=== PATIENT | female | born 1940 | race Caucasian/White ===

== ENCOUNTER 2022-09-19 17:52 | Observation (INO) | payer MEDICARE, OTHER, SELFPAY ==
[2022-09-19 17:52] VITALS: BP 159/90; PULSE 70; RESP 19; TEMP 36.8; O2SAT 95; BMI 29.7
--- NOTE | 2022-09-19 18:10 | EKG12_ITS ---
Test Reason : DIZZY Blood Pressure : / mmHG Vent. Rate : 061 BPM Atrial Rate : 061 BPM P-R Int : 188 ms QRS Dur : 092 ms QT Int : 422 ms P-R-T Axes : 023 -06 -01 degrees QTc Int : 424 ms Normal sinus rhythm Septal infarct , age undetermined Abnormal ECG Confirmed by EMY BAEZA, MEHRAN ([id number]), acquisition editor MEGAN PHILLIPS ([id number]) on 09/21/2022 8:55:21 AM Referred By: Confirmed By:MEHRAN QUEVEDO MD
--- NOTE | 2022-09-19 18:12 | CT_ITS ---
STUDY: CTA HEAD AND NECK WITH CONTRAST REASON FOR EXAM: Female, 82 years old. Dizziness and headache. RADIATION DOSAGE (If Supplied By Facility): CTDIvol = ( 32.14 ) mGy, DLP = ( 1532.86 ) mGycm TECHNIQUE: CT angiography was performed with a multi-detector CT scanner. Data acquisition was obtained from the skull base through the vertex following intravenous administration of IV 100mL Isovue-370. MIP images were reconstructed from the axial data set. Post-processing of the angiographic images was performed, with multiplanar reformation and 3D reconstruction. Individualized dose optimization techniques were used for this CT. COMPARISON: No relevant priors. FINDINGS: Normal bilateral petrous carotid arteries. There is calcified plaque formation of the right cavernous carotid artery, without a cross-sectional luminal stenosis. There is calcified plaque formation of the left cavernous carotid artery, without a cross-sectional luminal stenosis. Normal right A1 segments of the anterior cerebral artery. Normal left A1 segments of the anterior cerebral artery. Normal bilateral A2 segments of the anterior cerebral arteries. Normal right M1 and M2 segments of the middle cerebral arteries, with a normal M1 bifurcation. Normal left M1 and M2 segments of the middle cerebral arteries, with a normal M1 bifurcation. Normal right posterior communicating artery (PCOM). Normal left posterior communicating artery (PCOM). Normal bilateral vertebral arteries. Normal basilar artery with a normal basilar bifurcation. The visualized bilateral superior cerebellar (SCA) arteries are normal. Atretic P1 segments of the bilateral posterior cerebral arteries. The patent P2 and visualized P3 segments are supplied via the posterior communicating arteries. There is no demonstrated aneurysm of the moapa of Wolf. Chronic involutional changes without acute hemorrhage or infarct. AORTIC ARCH: Atherosclerotic changes of the aortic arch without aneurysm or dissection. Normal origins of the brachiocephalic, left common carotid, and left subclavian arteries. RIGHT CAROTID ARTERIES: Normal right common carotid artery (CCA). Atherosclerotic changes at the carotid bifurcation extending into the carotid bulb. Approximate 60% stenosis. Normal origin of the right internal carotid (ICA) artery without a hemodynamically significant stenosis. Normal visualized cervical portion of the right internal carotid artery. Normal origin of the right external carotid artery (ECA). LEFT CAROTID ARTERIES: Normal left common carotid artery (CCA). Atherosclerotic changes at the carotid bifurcation carotid bulb without significant stenosis. Normal origin of the left internal carotid (ICA) artery without a hemodynamically significant stenosis. Normal visualized cervical portion of the left internal carotid artery. Normal origin of the left external carotid artery (ECA). VERTEBRAL ARTERIES: Normal bilateral vertebral arteries. CT/CTA Head AND Neck W/ Contrast IMPRESSION: 1. Atherosclerotic changes at the right carotid bifurcation with approximate 60% stenosis. 2. Hemodynamically insignificant left carotid calcification. 3. Mild atherosclerotic changes of the carotid siphons without significant stenosis. 4. Atretic P1 segments of the bilateral posterior cerebral arteries. The distal arteries are supplied via the patent bilateral posterior communicating arteries. Otherwise normal intracranial vasculature. Electronically Signed: Ariel Chambers DO at 19:57 EST ,
--- NOTE | 2022-09-19 18:13 | EX.ED.DYSGE1 ---
HPI History of Present Illness Chief Complaint: Dizziness Detail of Chief Complaint: Dizziness Informant: patient Narrative Narrative: Patient presents the emergency department complaint of dizziness that started suddenly about half an hour ago. Patient states that she was doing a crossword puzzle when she had sudden onset of dizziness. Patient then had pain in the center of her head between her eyes. The headache seems to be getting better. She describes nausea but no vomiting. Patient does have history of vertigo in the past but that felt different. She denies difficulty with speech or vision. She denies weakness in the extremities. Patient not on blood thinners. She denies falls or head injuries. Denies significant illness recently. Patient has describes some myalgias and arthralgias over the last couple weeks [facility] Medical History (Updated 09/19/22 @ 20:[address] Hollie Horan MD) BPPV (benign paroxysmal positional vertigo) Former tobacco use HLD (hyperlipidemia) HTN (hypertension) Migraine Home Medications amlodipine 10 mg tablet 10 mg PO DAILY BLOOD PRESSURE 09/19/22 [History Last Taken 09/19/22] atorvastatin 10 mg tablet 10 mg PO DAILY CHOLESTEROL 09/19/22 [History Last Taken 09/19/22] pantoprazole 20 mg tablet,delayed release 20 mg PO DAILY ACID REFLUX 09/19/22 [History Last Taken Unknown] Allergy/AdvReac Type Severity Reaction Status Date / Time Penicillins [PCN] Allergy Rash Verified 09/19/22 17:55 pain meds Allergy Rash Uncoded 09/19/22 17:55 Surgical History (Updated 09/19/22 @ 20:[address] Hollie Horan MD) S/P bilateral hip replacements Social History Smoking Status: Former smoker ROS ROS ED Review of Systems ROS Unobtainable: other Constitutional Constitutional ED: Reports lethargy; Denies chills, fever(s), sweats or weight loss Eyes Eyes: Denies blurry vision, change in vision or diplopia ENT ENT ED: Denies rhinorrhea or sore throat Cardiovascular Cardiovascular: Denies chest pain, orthopnea or racing heartbeat Respiratory/Chest Respiratory/Chest: Denies cough, dyspnea, dyspnea on exertion, orthopnea or sputum Gastrointestinal Gastrointestinal: Denies abdominal pain, diarrhea, nausea or vomiting Genitourinary Genitourinary ED: Denies dysuria, hematuria or urinary frequency Musculoskeletal Musculoskeletal: Denies arthralgias, back pain, myalgias or neck pain Integumentary Denies abscess, Abrasions or rash Neurologic Neurologic: Reports headache(s) and other Details: Dizziness ; Denies weakness Psychiatric Psychiatric: Denies anxiety, depression or suicidal thoughts Endocrine Endocrinology: Denies polydipsia, polyphagia or polyuria Hematologic/Lymphatic Hematologic/Lymphatic: Denies easy bleeding, easy bruising or lymphadenopathy Allergic/Immunologic Allergic/Immunologic ED: Denies mouth swelling, tongue swelling or urticaria EXAM Physical Exam Const Vital Signs: 09/19/22 17:52 09/19/22 17:57 09/19/22 19:58 Temperature 98.3 F Temperature Source Oral Pulse Rate 70 64 Respiratory Rate 19 H 20 H Respiratory Effort Normal Non-Labored Respiratory Pattern Normal Blood Pressure 159/90 H 158/83 H Blood Pressure Mean 113 108 Pulse Ox 95 93 Oxygen Delivery Method Room Air Nasal Cannula Oxygen Flow Rate (L/min) 2 Positive well nourished and well developed General Appearance ED: well developed and NAD HEENT Reports TM's clear and moist mucous membranes normocephalic and atraumatic; Negative for trauma or tenderness Tympanic Membrane ED: Yes TM's clear Eyes PERRL and EOMs intact bilaterally General Eye ED: Negative for pale conjunctiva or scleral icterus Neck no lymphadenopathy, supple and no JVD General: Negative for tenderness Chest Wall inspection of chest normal and palpation of chest normal Chest: Negative for tenderness Resp normal respiratory effort and clear to auscultation bilaterally Effort and Inspection: Negative for respiratory distress or pain with movement Auscultation: Negative for rhonchi, wheezes or diminished lung sounds Cardio regular rate, regular rhythm, S1 normal heart sound, S2 normal heart sound and no murmurs Peripheral Pulses: pulses 2+ throughout GI normal to inspection, nondistended, normoactive bowel sounds, soft to palpation, non-tender, non-distended and no masses Back/Spine no CVA tenderness and no thoracic nor lumbar tenderness Extremity normal to inspection General Extremety ED: Negative for edema General Extremity: Negative for edema Neuro oriented x3, CN's II-XII intact bilaterally, no sensory deficits noted and gait normal Neuro Narrative: Finger-nose and heel cortes testing within normal limits, negative Romberg, negative pronator drift, fundi benign. Hallpike maneuver performed and there was no evidence of nystagmus. Sensorium / Orientation: awake, alert, oriented to person, oriented to place and oriented to time Motor Exam: strength 5/5 throughout and strength abnormal Psych mental status grossly normal Skin no rashes or lesions noted and no wounds MDM MDM MDM Narrative Medical decision making narrative: Patient presents to the emergency department with dizziness sudden onset. She does have history of vertigo. She describes dizziness being worse with head position. Clinically I cannot appreciate any nystagmus but she is symptomatic with sitting up and certain head movements. IV line established on arrival. Patient was medicated with Zofran and Ativan as well as meclizine. She continues to complain of dizziness after treatment. CTA of the head and neck were essentially unremarkable. CBC with differential and chemistries were unremarkable. EKG showed a sinus rhythm with a rate of 61 bpm with old septal infarct. At this time Case will be discussed with hospitalist to evaluate patient for admission. In the differential would be benign positional vertigo versus central vertigo and possible stroke. History & Record Review Discussion w/independent historian: Patient Lab Data Labs: Laboratory Results - last 24 hr 09/19/22 09/19/22 18:00 18:00 WBC 10.7 RBC 5.29 Hgb 14.1 Hct 45.4 MCV 85.8 MCH 26.7 L MCHC 31.1 L RDW Std Deviation 46.0 H RDW Coeff of Robinson 14.6 Plt Count 279 MPV 11.1 Immature Gran % (Auto) 0.400 Neut % (Auto) 58.2 Lymph % (Auto) 28.7 Bradford % (Auto) 9.6 Eos % (Auto) 2.2 Baso % (Auto) 0.9 Absolute Neuts (auto) 6.2 Absolute Lymphs (auto) 3.07 Nucleated RBC % 0 Sodium 142 Potassium 3.9 Chloride 110 H Carbon Dioxide 25.0 Anion Gap 7 BUN 14 Creatinine 0.90 Estim Creat Clear Calc 33.42 Est GFR (MDRD) Af Amer 77 Est GFR (MDRD) Non-Af 64 BUN/Creatinine Ratio 15.6 Glucose 101 Calcium 10.9 H Troponin I High Sens 8 Radiography Diagnostic Testing: Clinical Impression(s) from Imaging Studies Head/Neck CTA 09/19/22 18:12 IMPRESSION: 1. Atherosclerotic changes at the right carotid bifurcation with approximate 60% stenosis. 2. Hemodynamically insignificant left carotid calcification. 3. Mild atherosclerotic changes of the carotid siphons without significant stenosis. 4. Atretic P1 segments of the bilateral posterior cerebral arteries. The distal arteries are supplied via the patent bilateral posterior communicating arteries. Otherwise normal intracranial vasculature. Electronically Signed: Ariel Chambers DO at 19:57 EST Reading Location ID and State: [address] [place] [address] Tel [phone], Service support , EKG Initial EKG: Attestation: I personally reviewed and interpreted this EKG as follows: Comments: Sinus rhythm with a rate of 61 bpm with old septal infarct Management Discussion w/another healthcare provider: Hospitalist Discharge Plan Dx/Rx/DC Orders Clinical Impression: Dizziness, Hypertension, Difficulty in walking Disposition Disposition: Acute Care Hospital [facility]
--- NOTE | 2022-09-19 18:18 | NURSING ---
NO OLD EKGS
[2022-09-19] MEDS: 0.9% Normal Saline 1,000 ML 150 ML IV (18:26)
[2022-09-19] MEDS: Ondansetron 4 MG/2 ML Vial IV (18:26)
[2022-09-19] MEDS: LORazepam 2 MG/ML Syringe 1 MG IV (18:27)
[2022-09-19] MEDS: Meclizine HCl 25 MG Tablet PO (18:27)
[2022-09-19 18:50] LABS: Absolute Lymphocyte Count 3.07 X10^3/uL (0.83-4.51); Absolute Neutrophil Count 6.2 X10^3/uL (2.0-7.7); Basophil% 0.9 % (0-1); Eosinophil# 0.24 X10^3/uL; Eosinophils% 2.2 % (0-5); Hematocrit 45.4 % (37-47); Hemoglobin 14.1 g/dL (12.0-15.0); Lymphocyte # 3.07 X10^3/ul (0.83-4.51); Lymphocyte % 28.7 % (19-41); Mean Corp Hgb Conc 31.1 g/dL (32-36); Mean Corpuscular Hgb 26.7 pg (27.0-32.0); Mean Corpuscular Volume 85.8 fL (81-99); Mean Platelet Vol. 11.1 fl (6.2-12.0); Monocyte# 1.03 X10^3/uL; Monocyte% 9.6 % (0-10); NRBC Flagged by Analyzer 0 % (0-5); Neutrophil # 6.22 X10^3/uL (2.7-7.7); Neutrophil % 58.2 % (47-70); Platelet Count 279 K/mm3 (150-450); RBC Distribution Width CV 14.6 % (11.6-14.6); Red Blood Count 5.29 M/mm3 (4.2-5.4); White Blood Count 10.7 K/mm3 (4.4-11.0)
[2022-09-19 19:06] LABS: Anion Gap 7 (5-15); BUN 14 mg/dL (7-18); BUN/Creat Ratio 15.6 RATIO (10-20); Calcium,Total 10.9 mg/dL (8.5-10.1); Chloride 110 mmol/L (98-107); EST Glomerular Filtration Rate 64 mL/min (>60); Est Glom Filt Rate - Afr Amer 77 mL/min (>60); Estimated Creatinine Clearance 33.42 ml/min; Glucose 101 mg/dL (74-106); Potassium 3.9 mmol/L (3.5-5.1); Sodium Level 142 mmol/L (136-145); Troponin-I HS 8 pg/mL (3.0-54.0)
[2022-09-19 19:58] VITALS: BP 158/83; PULSE 64; RESP 20; O2SAT 93
--- NOTE | 2022-09-19 20:35 | PCM.HP.STD ---
HPI - General General Date of Admission: 09/19/22 Date of Service: 09/19/22 Chief Complaint: Dizziness HPI Narrative The patient is an 82 y/o F w/ PMHx: Chronic migraines with aura associated, Hx BPPV, HTN, HLD, Former tobacco use who presents to the [facility] ED on 09/19/22 with history of onset of dizziness starting approximately half an hour prior to ED presentation while she was specifically doing crossword puzzles with also discomfort between her eyes with throbbing headache sensation with associated nausea with no emesis with history of prior vertigo however this felt different than previous with no focal deficits or any difficulty with her vision or speech prompting eventual ED evaluation. Patient is otherwise been in decent health although she does report mild myalgias and arthralgias over the last couple weeks. Patient notes that when she sits up from seated or turns her head to either direction her symptoms are worsened. Family present does state that with onset she felt as though she could not move but is unclear if this was because she felt so poorly but with assistance with EMS she did not have any issue with specifically movement. Patient does have a history of migraines which do occur at the similar region she had her headache and she does tend to have aura but not specifically light or sound sensitivity per discussion with family. Patient has never had a complex migraine. In the ED they did attempted a Chelsey-Hallpike maneuver and there was no evidence of any nystagmus. In the ED work-up included T98.3, heart rate 70, BP 159/90 initially, respiratory rate 19, 95% on room air eventually requiring oxygen following interventions with noted 93% on 2 L nasal cannula, CBC with WC 10.7, hemoglobin 14.1, platelet 279 without marked shift, BMP with chloride 110, calcium 10.9, troponin 8,. In the ED patient administered normal normal saline 1 L, Zofran 4 mg IV x1, meclizine 25 mg p.o. x1 as well as Ativan 1 mg IV x1, CT head and neck with contrast with atherosclerotic changes of the right carotid bifurcation with approximate 60% stenosis, hemodynamically insignificant left carotid calcification, mild atherosclerotic changes of the carotid siphons without significant stenosis, atretic P1 segment of the bilateral posterior cerebral arteries, distal artery supplied by the patent bilateral posterior communicating arteries otherwise normal intracranial vasculature, EKG with SR with no acute evidence of acute ischemia. Given preference for admission to further work-up possible posterior CVA discussed with ED physician requested aspirin therapy be administered. In the ED upon evaluation patient she was extremely fatigued and lethargic because of likely her medications which are sedated in nature. [facility] Medical History (Updated 09/19/22 @ 22:22 by Sugey Barney) BPPV (benign paroxysmal positional vertigo) Former tobacco use Hiatal hernia HLD (hyperlipidemia) HTN (hypertension) Migraine Home Medications amlodipine 10 mg tablet 10 mg PO DAILY BLOOD PRESSURE 09/19/22 [History Last Taken 09/19/22] atorvastatin 10 mg tablet 10 mg PO DAILY CHOLESTEROL 09/19/22 [History Last Taken 09/19/22] pantoprazole 20 mg tablet,delayed release 20 mg PO DAILY ACID REFLUX 09/19/22 [History Last Taken Unknown] Allergy/AdvReac Type Severity Reaction Status Date / Time Penicillins [PCN] Allergy Rash Verified 09/19/22 17:55 pain meds Allergy Rash Uncoded 09/19/22 17:55 Family History (Updated 09/19/22 @ 22:[address] Hollie Horan MD) Mother CAD (coronary artery disease) Heart disease Hypertension Family History other other (No marked paternal family history noted including HD, DM, CA.) Surgical History (Updated 09/19/22 @ 22:[address] Hollie Horan MD) History of eye surgery History of repair of hiatal hernia S/P bilateral hip replacements Social History (Updated 09/19/22 @ 22:[address] Hollie Horan MD) household members: significant other Smoking Status: Former smoker how long ago did patient quit smoking: Quit 1960s, started in her 20s, ~ 1/2 ppd until quit. alcohol intake: never substance use type: does not use ROS ROS Narrative Admission Review of Systems: CONSTITUTIONAL: No weight loss, fever, chills, + weakness or fatigue. HEENT: + Dizziness, headache. Eyes: No visual loss, blurred vision, double vision or yellow sclerae. Ears, Nose, Throat: No hearing loss, sneezing, congestion, runny nose or sore throat. SKIN: No rash or itching, lesions, wounds. CARDIOVASCULAR: No chest pain, chest pressure or chest discomfort, palpitations, edema, orthopnea, syncopal events. RESPIRATORY: No shortness of breath, cough or sputum, wheezing, hemoptysis. GASTROINTESTINAL: + anorexia, nausea without vomiting. No diarrhea, abdominal pain, melena, BRBPR. GENITOURINARY: No dysuria, frequency, urgency or retention. NEUROLOGICAL: + Dizziness, headache. No syncope, paralysis, ataxia, numbness or tingling in the extremities, focal weakness, change in bowel or bladder control, seizure. MUSCULOSKELETAL: + muscle, back pain, joint pain or stiffness. HEMATOLOGIC: No anemia, bleeding or bruising. LYMPHATICS: No enlarged nodes. No history of splenectomy. PSYCHIATRIC: No history of depression or anxiety. ENDOCRINOLOGIC: No reports of sweating, cold or heat intolerance. No polyuria or polydipsia. ALLERGIES: No history of asthma, hives, eczema or rhinitis. Review of Systems ROS Unobtainable: other Details: Unable to current obtain ROS from patient, only family secondary to lethargy/sedation from recent ativan/meclizine. Vital Signs Vital Signs Vital Signs: 09/19/22 17:52 09/19/22 17:57 09/19/22 19:58 Temperature 98.3 F Temperature Source Oral Pulse Rate 70 64 Respiratory Rate 19 H 20 H Respiratory Effort Normal Non-Labored Respiratory Pattern Normal Blood Pressure 159/90 H 158/83 H Blood Pressure Mean 113 108 Pulse Ox 95 93 Oxygen Delivery Method Room Air Nasal Cannula Oxygen Flow Rate (L/min) 2 Weight Weight: 152 lb Body Mass Index (BMI) 29.7 Physical Exam Narrative Physical Examination: General: Patient extremely lethargic following recent Ativan and meclizine combination, will awaken but falls back asleep, unable to answer orientation questions or follow exam request, laying in the ED bed, no acute distress. Skin: Normal color, normal turgor, no icterus, no cyanosis. HEENT: AT/NC, EOM unable to be assessed well given lethargy, PERRLA, mildly dry MM, no carotid bruits although some referred sounds from snoring make exam difficult, no marked JVD noted. Lungs: Mildly diminished, greater bases, softly snoring, no rales, ronchi or wheezing. Heart: Currently regular rate and rhythm; no gallop, rub audible. Abdomen: Soft, obese, NTTP, ND, mildly hyperactive BS, no HSM. Extremities: No cyanosis, clubbing, or edema. Neurological: Patient extremely lethargic following recent Ativan and meclizine combination, will awaken but falls back asleep, unable to answer orientation questions or follow exam request, laying in the ED bed, no acute distress, cognitive function not currently baseline but likely secondary to sedated medication, cranial nerves difficult to assess given lethargy, moving extremities but again more so with irritability during exam, unable to perform finger-nose/[id number], equivocal Babinski noted, no evidence of any nystagmus. Psychiatric: Affect appears flat, lethargic, no acute evidence of depressive or anxiety feelings. Results Lab / Micro Data Result Diagrams: 09/19/22 18:00 09/19/22 18:00 Labs: Laboratory Results - last 24 hr 09/19/22 18:00: WBC 10.7, RBC 5.29, Hgb 14.1, Hct 45.4, MCV 85.8, MCH 26.7 L, MCHC 31.1 L, RDW Std Deviation 46.0 H, RDW Coeff of Robinson 14.6, Plt Count 279, MPV 11.1, Immature Gran % (Auto) 0.400, Neut % (Auto) 58.2, Lymph % (Auto) 28.7, [place] % (Auto) 9.6, Eos % (Auto) 2.2, Baso % (Auto) 0.9, Absolute Neuts (auto) 6.2, Absolute Lymphs (auto) 3.07, Nucleated RBC % 0 09/19/22 18:00: Sodium 142, Potassium 3.9, Chloride 110 H, Carbon Dioxide 25.0, Anion Gap 7, BUN 14, Creatinine 0.90, Estim Creat Clear Calc 33.42, Est GFR (MDRD) Af Amer 77, Est GFR (MDRD) Non-Af 64, BUN/Creatinine Ratio 15.6, Glucose 101, Calcium 10.9 H, Troponin I High Sens 8 Radiology Impression Head/Neck CTA 09/19/22 18:12 IMPRESSION: 1. Atherosclerotic changes at the right carotid bifurcation with approximate 60% stenosis. 2. Hemodynamically insignificant left carotid calcification. 3. Mild atherosclerotic changes of the carotid siphons without significant stenosis. 4. Atretic P1 segments of the bilateral posterior cerebral arteries. The distal arteries are supplied via the patent bilateral posterior communicating arteries. Otherwise normal intracranial vasculature. Electronically Signed: Ariel Chambers DO at 19:57 EST Reading Location ID and State: [address] [place] [address] Tel [phone], Service support , Assessment & Plan Assessment/Plan (1) Dizziness: PLAN: Plan The patient is an 82 y/o F w/ PMHx: Chronic migraines with aura associated, Hx BPPV, HTN, HLD, Former tobacco use who presents to the [facility] ED on 09/19/22 with history of onset of dizziness starting approximately half an hour prior to ED presentation while she was specifically doing crossword puzzles with also discomfort between her eyes with throbbing headache sensation with associated nausea with no emesis with history of prior vertigo however this felt different than previous with no focal deficits or any difficulty with her vision or speech prompting eventual ED evaluation. #1. Dizziness concerning for possible benign positional vertigo however cannot rule out posterior CVA and certainly could also be possible complex migraine given history: Will admit to PCU, will obtain MRI Brain, given findings as noted #2 we will request carotid ultrasound with plan for vascular surgery evaluation potentially inpatient if acute CVA is present and if negative potentially outpatient, will request ECHO, PT/OT/Speech/Nutrition evaluation per protocol. Will allow permissive HTN, maintain on asa, statin w/ AM FLP, fall precautions, hemoglobin A1c, magnesium, TSH requested, will continue treatment but will trial Valium to see if this has better effect if recurrent symptoms however will have as needed only given patient is very lethargic from her recent ED combination of Ativan, meclizine. #2. Incidentally noted right carotid bifurcation stenosis: CTA head and neck with eschar changes at the right carotid bifurcation with approximate 60% stenosis, will also request carotid ultrasound as often vascular surgery prefers this method, would plan to have follow-up outpatient with vascular surgery, maintain on aspirin, continue patient statin therapy. #3. Mild hypercalcemia, unclear etiology but recent complaints Arthralgia/Myalgia certainly could be related: Admission calcium 10.9, will obtain ionized calcium, judiciously hydrating, repeat CMP in AM, will also check CPK, mag/phos, COVID/respiratory panel. #4. Hypertension: We will maintain permissive hypertension given acute presentation with parent agents per stroke protocol. #5. Hyperlipidemia: We will continue patient home statin therapy. FLP in a.m. #6. Former tobacco use: Encourage continued tobacco cessation. #7. DVT prophylaxis: Lovenox. #8. CODE status: Patient JAYSON is her son who is present and living will in place. Discussed CODE status at length including difference between FULL code, DNR-CCA and DNR-CC status. Following discussions about the differences in these status, requested Full Code status. Advanced Care Planning Face to Face Time: 16 minutes. Admission Evaluation Time spent evaluating chart, patient history, patient evaluation, care planning and discussion with specialists: 75 minutes. Charges/Coding Visit Charges Inpatient E&M: 26566 Init Hosp L3 Procedures Hospitalists Procedures: 44535 Advncd Care Plan 30 Min
[2022-09-19 21:20] VITALS: BP 91/57; PULSE 60; RESP 18; TEMP 36.3; O2SAT 96
[2022-09-19 21:30] LABS: Erythrocyte Sedimentation Rate 18 mm/hr (0-30)
[2022-09-19 21:33] LABS: CRP < 2.90 mg/L (0.0-3.0); Magnesium 2.3 mg/dL (1.6-2.6)
--- NOTE | 2022-09-19 21:47 | ECHOD_ITS ---
Reason For Study: TIA/CVA Procedure This was a 2D Doppler, Color Flow transthoracic echocardiogram. The exam was of adequate technical quality. Exam performed portable in patient room. Left Ventricle Normal LV size. Left ventricular systolic function is normal. The estimated ejection fraction is 65 %. Stage 2 diastolic dysfunction. No regional wall motion abnormalities noted. Right Ventricle Normal RV size. Normal systolic function. Atria The left atrium is moderately enlarged. Normal right atrium. No doppler evidence for ASD. Bubble contrast study negative for right to left interatrial shunt. Mitral Valve There is mild mitral annular calcification. Extension of the mitral annular calcification onto the base of the posterior mitral valve leaflet. Mild (1+) mitral valve insufficiency. Tricuspid Valve Normal tricuspid valve. Mild tricuspid valve insufficiency. Right ventricular systolic pressure estimated to be 36 mmHg. Aortic Valve Trisinus/trileaflet aortic valve. Moderate focal aortic valve calcification. Pulmonic Valve The pulmonic valve is not well visualized. Trivial pulmonic valve insufficiency. Great Vessels Normal sized aortic root. Calcified aortic root. Pericardium/Pleural No pericardial effusion. Medication Performed a rapid injection of agitated mix of 9 cc saline and 1cc air to assess for atrial septal defect. MMode/2D Measurements & Calculations LVIDd: 4.8 cm IVSd: 0.89 cm LVOT diam: 2.2 cm LVIDs: 3.0 cm LVPWd: 1.2 cm FS: 36.3 % LVOT area: 3.8 cm2 Ao root diam: 2.8 cm LAV(MOD-sp4): 106.9 ml LVAd ap4: 23.8 cm2 LVLd ap4: 6.4 cm EDV(MOD-sp4): 70.7 ml EDV(sp4-el): 75.1 ml LVAs ap4: 11.2 cm2 LVLs ap4: 5.1 cm ESV(MOD-sp4): 20.7 ml ESV(sp4-el): 20.9 ml EF(MOD-sp4): 70.8 % EF(sp4-el): 72.1 % SV(MOD-sp4): 50.0 ml SV(sp4-el): 54.2 ml LA A4 area: 31.6 cm2 LA dimension(2D): 4.8 cm RA A4 area: 8.4 cm2 Time Measurements MV dec time: 0.25 sec Doppler Measurements & Calculations MV E max nando: 92.2 cm/sec Lat Peak E' Nando: 7.5 cm/sec Med Peak E' Nando: 6.0 cm/sec MV A max nando: 108.1 cm/sec E/E' lat: 12.3 E/E' med: 15.3 MV E/A: 0.85 MV V2 max: 118.2 cm/sec MV dec slope: 367.8 cm/sec2 Ao V2 max: 185.5 cm/sec MV max P.6 mmHg Ao max P.8 mmHg MV V2 mean: 56.3 cm/sec Ao V2 mean: 123.3 cm/sec MV mean P.6 mmHg Ao mean P.1 mmHg MV V2 VTI: 40.1 cm Ao V2 VTI: 47.2 cm MVA(VTI): 2.7 cm2 AV (velocity ratio): 0.61 ERIBERTO(I,D): 2.3 cm2 ERIBERTO(V,D): 2.2 cm2 LV V1 max: 107.8 cm/sec MR max nando: 526.4 cm/sec SV(LVOT): 109.1 ml LV V1 max P.6 mmHg MR max P.9 mmHg LV V1 mean P.6 mmHg MR mean nando: 439.8 cm/sec LV V1 mean: 75.2 cm/sec MR mean P.3 mmHg LV V1 VTI: 28.7 cm MR VTI: 185.3 cm PA V2 max: 101.9 cm/sec TR max nando: 288.8 cm/sec PA V2 mean: 69.7 cm/sec TR max P.4 mmHg ECHO/Echo Complete Interpretation Summary Left ventricular systolic function is normal. The estimated ejection fraction is 65 %. The left atrium is moderately enlarged. There is mild mitral annular calcification. Extension of the mitral annular calcification onto the base of the posterior mi tral valve leaflet Mild (1+) mitral valve insufficiency. Mild tricuspid valve insufficiency. Moderate focal aortic valve calcification. Trivial pulmonic valve insufficiency. Calcified aortic root. Right ventricular systolic pressure estimated to be 36 mmHg. Stage 2 diastolic dysfunction. Bubble contrast study negative for right to left interatrial shunt. Ordering Physician: Hollie Horan Referring Physician: SYED SALDAÑA Performed By: Joyce Carrion RCS
--- NOTE | 2022-09-19 21:47 | CDU_ITS ---
Reason For Study: CVA Rt. Velocities/BP Lt. Velocities/BP Prox CCA 96.1/22.5 cm/sec. Prox CCA 64.1/20.1 cm/sec. Mid CCA 80.2/20 cm/sec. Mid CCA 52/13.5 cm/sec. Dist CCA 70.4/22.5 cm/sec. Dist CCA 57.5/20.1 cm/sec. Prox ICA 102.5/32.2 cm/sec. Prox ICA 47.6/12.4 cm/sec. Mid ICA 88.8/22.5 cm/sec. Mid ICA 56.4/14.6 cm/sec. Dist ICA 74/21.2 cm/sec. Dist ICA 63/22.3 cm/sec. Rt. ICA/CCA = 1.28. Lt. ICA/CCA = 1.10. Prox ECA 77.7/13.9 cm/sec. Prox ECA 56.4/6.9 cm/sec. Rt. Vert. 36.2/10.7 cm/sec. Lt. Vert. 34.3/8.1 cm/sec. Right Extracranial There is homogeneous, smooth atherosclerotic plaque noted in the right common carotid artery. There is heterogeneous, irregular atherosclerotic plaque noted in the right internal carotid artery. There is heterogeneous, irregular atherosclerotic plaque noted in the right external carotid artery. Antegrade flow is noted in the right vertebral artery. Left Extracranial There is homogeneous, smooth atherosclerotic plaque noted in the left common carotid artery. There is heterogeneous, irregular atherosclerotic plaque noted in the left internal carotid artery. There is intimal thickening but no significant atherosclerotic plaque noted in the left external carotid artery. Antegrade flow is noted in the left vertebral artery. Procedure Carotid Duplex 18642. This is a Carotid Duplex examination using B-mode, color flow and specral Doppler. Exam performed portable in patient room. VL/Carotid Duplex Ultrasound Interpretation Summary Irregular calcific plaque at the proximal right internal carotid artery with le ss than 50% stenosis Less than 50% stenosis right external carotid artery Mild irregular plaque at the proximal left internal carotid artery with less th an 50% stenosis Less than 50% stenosis left external carotid artery Patent and antegrade vertebral arteries bilaterally Ordering Physician: Hollie Horan Referring Physician: Sujatha Rees Performed By: Lian Han RVT
[2022-09-19 21:51] VITALS: BP 124/74; PULSE 60; RESP 18; TEMP 36.4; O2SAT 97
[2022-09-19 22:07] VITALS: BMI 30.9
[2022-09-19 22:20] VITALS: O2SAT 97
[2022-09-19 22:21] LABS: Procalcitonin < 0.01 ng/mL (0.00-0.09)
[2022-09-19] MEDS: 0.9% Normal Saline 1,000 ML 100 ML IV (22:48)
[2022-09-19] MEDS: Aspirin 325 MG Tablet PO (22:48)
[2022-09-19 23:01] LABS: CPK Total, Creatine Kinase 182 U/L (26-192); Phosphorus 3.1 mg/dL (2.5-4.9)
[2022-09-20] MEDS: 0.9% Normal Saline 1,000 ML 999 ML IV (00:02)
[2022-09-20] MEDS: 0.9% Saline Lock 10 ML Syringe IV (00:26)
[2022-09-20 01:29] VITALS: BMI 30.9
[2022-09-20 01:57] VITALS: BP 123/73; PULSE 55; RESP 18; TEMP 36.6; O2SAT 98
[2022-09-20 05:17] VITALS: BP 122/63; PULSE 53; RESP 18; TEMP 36.2; O2SAT 95
[2022-09-20 05:47] LABS: Absolute Lymphocyte Count 2.76 X10^3/uL (0.83-4.51); Absolute Neutrophil Count 4.4 X10^3/uL (2.0-7.7); Basophil# 0.09 X10^3/uL; Basophil% 1.1 % (0-1); Eosinophil# 0.27 X10^3/uL; Eosinophils% 3.2 % (0-5); Hematocrit 38.8 % (37-47); Hemoglobin 11.9 g/dL (12.0-15.0); Lymphocyte # 2.76 X10^3/ul (0.83-4.51); Lymphocyte % 32.9 % (19-41); Mean Corp Hgb Conc 30.7 g/dL (32-36); Mean Corpuscular Hgb 26.8 pg (27.0-32.0); Mean Corpuscular Volume 87.4 fL (81-99); Mean Platelet Vol. 10.9 fl (6.2-12.0); Monocyte# 0.89 X10^3/uL; Monocyte% 10.6 % (0-10); NRBC Flagged by Analyzer 0 % (0-5); Neutrophil # 4.37 X10^3/uL (2.7-7.7); Platelet Count 216 K/mm3 (150-450); RBC Distribution Width CV 14.6 % (11.6-14.6); RBC Distribution Width SD 47.3 fl (35.1-43.9); Red Blood Count 4.44 M/mm3 (4.2-5.4); White Blood Count 8.4 K/mm3 (4.4-11.0)
[2022-09-20 06:00] VITALS: BMI 30.9
[2022-09-20 06:18] LABS: AST(SGOT) 21 U/L (15-37); Alanine Aminotransfer ALT/SGPT 16 U/L (13-56); Albumin, Serum 2.9 g/dL (3.2-5.0); Alkaline Phosphatase 59 U/L (45-117); Anion Gap 5 (5-15); BUN 11 mg/dL (7-18); BUN/Creat Ratio 16.3 RATIO (10-20); Calcium,Total 9.3 mg/dL (8.5-10.1); Chloride 114 mmol/L (98-107); Cholesterol 129 mg/dL (200); Creatinine, Serum 0.68 mg/dL (0.55-1.02); EST Glomerular Filtration Rate 88 mL/min (>60); Est Glom Filt Rate - Afr Amer 107 mL/min (>60); Estimated Creatinine Clearance 30.08 ml/min; Glucose 88 mg/dL (74-106); High Density Lipoprotein 46 mg/dL; Potassium 3.9 mmol/L (3.5-5.1); Protein, Total 5.9 g/dL (6.4-8.2); Sodium Level 145 mmol/L (136-145); Thyroid Stim Hormone (TSH) 2.21 uIU/mL (0.358-3.74); Triglycerides 111 mg/dL; Very Low Density Lipoprotein 22 mg/dL (5-40)
[2022-09-20 08:34] LABS: Hemoglobin A1c 5.2 % (3.8-5.6)
[2022-09-20 09:04] VITALS: BP 129/77; PULSE 53; RESP 17; TEMP 36.8; O2SAT 94
--- NOTE | 2022-09-20 10:00 | MRI_ITS ---
EXAM: MR HEAD WITHOUT INTRAVENOUS CONTRAST CLINICAL INDICATION: CVA TECHNIQUE: Multiplanar and multisequence MR images of the brain were obtained without intravenous contrast. This report was created using [employer] report generation technology. COMPARISON: CTA head and neck with contrast 09/19/2022. FINDINGS: BRAIN AND EXTRA-AXIAL SPACES: T2 FLAIR hyperintensity foci in the white matter of both cerebral hemispheres are chronic white matter ischemic changes. No intra- or extra-axial hemorrhage. Posterior fossa structures are unremarkable. Ventricles are appropriate for age. No hydrocephalus. Basal cisterns are patent. No diffusion restriction to suspect acute or subacute ischemic infarct. No midline shift and no mass effects. SELLA: Unremarkable. Normal sella turcica, pituitary gland, infundibular stalk, optic chiasm and hypothalamus. AUDITORY SYSTEM: Unremarkable. The internal auditory canals are patent. BONES/JOINTS: Unremarkable. No discrete lytic or blastic abnormalities. SINUSES: Unremarkable as visualized. Clear. MASTOID AIR CELLS: Unremarkable as visualized. Clear. ORBITS: Unremarkable as visualized. Both globes, extraocular muscles, optic nerves and retrobulbar fat appear unremarkable. VASCULATURE: Unremarkable as visualized. Normal flow voids in the major intracranial circulation. MRI/Brain without Contrast IMPRESSION: 1. No MRI evidence of acute or subacute ischemic infarct or acute intracranial abnormality. 2. Chronic white matter ischemic changes in both cerebral hemispheres. Electronically Signed: Santos Castañeda MD at 12:31 EST ,
--- NOTE | 2022-09-20 10:06 | PCM.PN.HOSP ---
Reason for Visit Reason for Visit: Diagnoses Dizziness and giddiness (09/19/22) Subjective Subjective Patient is an 82-year-old lady admitted with sudden onset of dizziness which was apparently positional. Admitted to monitored bed currently undergoing evaluation to rule out posterior circulation CVA. Objective Data Objective Data Vital Signs: Vital Signs Temp Pulse Resp BP Pulse Ox O2 Del Method O2 Flow Rate 98.3 F 53 L 17 129/77 H 94 Room Air 2 09/20/22 09:04 09/20/22 09:04 09/20/22 09:04 09/20/22 09:04 09/20/22 09:04 09/20/22 09:04 09/20/22 05:17 Oxygen Flow Rate (L/min) 2 Oxygen Delivery Method Room Air Weight: 71.8 kg Body Mass Index (BMI) 30.9 Intake & Output: Intake and Output for Last 24 Hours 09/18/22 09/19/22 09/20/22 23:59 23:59 23:59 Intake Total 462.5 / 462.5 1243.33 / 1243.33 Balance 462.5 / 462.5 1243.33 / 1243.33 Lab / Micro Data Result Diagrams: 09/20/22 04:43 09/20/22 04:43 Labs: Laboratory Results - last 24 hr 09/19/22 18:00: WBC 10.7, RBC 5.29, Hgb 14.1, Hct 45.4, MCV 85.8, MCH 26.7 L, MCHC 31.1 L, RDW Std Deviation 46.0 H, RDW Coeff of Robinson 14.6, Plt Count 279, MPV 11.1, Immature Gran % (Auto) 0.400, Neut % (Auto) 58.2, Lymph % (Auto) 28.7, [place] % (Auto) 9.6, Eos % (Auto) 2.2, Baso % (Auto) 0.9, Absolute Neuts (auto) 6.2, Absolute Lymphs (auto) 3.07, Nucleated RBC % 0 09/19/22 18:00: Sodium 142, Potassium 3.9, Chloride 110 H, Carbon Dioxide 25.0, Anion Gap 7, BUN 14, Creatinine 0.90, Estim Creat Clear Calc 33.42, Est GFR (MDRD) Af Amer 77, Est GFR (MDRD) Non-Af 64, BUN/Creatinine Ratio 15.6, Glucose 101, Calcium 10.9 H, Troponin I High Sens 8 09/19/22 18:00: ESR 18 09/19/22 18:00: Magnesium 2.3, C-React Prot Ext Range < 2.90 09/19/22 18:00: Phosphorus 3.1, Total Creatine Kinase 182 09/19/22 21:15: Procalcitonin < 0.01 09/19/22 21:15: COVID-19 (MARIN) Not Detected 09/20/22 04:43: WBC 8.4, RBC 4.44, Hgb 11.9 L, Hct 38.8, MCV 87.4, MCH 26.8 L, MCHC 30.7 L, RDW Std Deviation 47.3 H, RDW Coeff of Robinson 14.6, Plt Count 216, MPV 10.9, Immature Gran % (Auto) 0.200, Neut % (Auto) 52.0, Lymph % (Auto) 32.9, [place] % (Auto) 10.6 H, Eos % (Auto) 3.2, Baso % (Auto) 1.1 H, Absolute Neuts (auto) 4.4, Absolute Lymphs (auto) 2.76, Nucleated RBC % 0 09/20/22 04:43: Sodium 145, Potassium 3.9, Chloride 114 H, Carbon Dioxide 26.0, Anion Gap 5, BUN 11, Creatinine 0.68, Estim Creat Clear Calc 30.08, Est GFR (MDRD) Af Amer 107, Est GFR (MDRD) Non-Af 88, BUN/Creatinine Ratio 16.3, Glucose 88, Calcium 9.3, Total Bilirubin 1.20 H, AST 21, ALT 16, Alkaline Phosphatase 59, Total Protein 5.9 L, Albumin 2.9 L, Globulin 3.0, Albumin/Globulin Ratio 1.0, Triglycerides 111, Cholesterol 129, LDL Cholesterol 61, VLDL Cholesterol 22, HDL Cholesterol 46, TSH 2.21 09/20/22 04:43: Hemoglobin A1c 5.2 Micro: Microbiology 09/19/22 23:25 Mucosa - Nasopharyngeal Respiratory Panel (PCR) - Final Radiography Diagnostic Testing: Radiology Impression Head/Neck CTA 09/19/22 18:12 IMPRESSION: 1. Atherosclerotic changes at the right carotid bifurcation with approximate 60% stenosis. 2. Hemodynamically insignificant left carotid calcification. 3. Mild atherosclerotic changes of the carotid siphons without significant stenosis. 4. Atretic P1 segments of the bilateral posterior cerebral arteries. The distal arteries are supplied via the patent bilateral posterior communicating arteries. Otherwise normal intracranial vasculature. Electronically Signed: Ariel Chambers DO at 19:57 EST Reading Location ID and State: [address] [place] [address] Tel [phone], Service support , Physical Exam Narrative GENERAL: cooperative HEENT: Atraumatic; normocephalic EYES; Anicteric, Normal Conjunctiva NECK; supple, normal thyroid, RESPIRATORY: Diminished to auscultation CARDIOVASCULAR: Regular S1 S2, GI: soft, normoactive bowel sounds, : No Renal angle tenderness; EXTREMITIES: No edema, no clubbing, MUSCULOSKELETAL: no muscle wasting NEURO: Awake; no lateralizing signs. SKIN: No Rash PSYCH; Flat affect Assessment & Plan Assessment/Plan (1) Dizziness: PLAN: Plan Patient is an 82-year-old lady admitted with sudden onset of dizziness which was apparently positional in addition to double vision. Admitted to monitored bed currently undergoing evaluation to rule out posterior circulation CVA. Acute onset of vertigo ? Do suspect BPPV given the persistent nature of symptoms. Admitted to a monitored bed medicated with Valium. Plan is for patient to undergo subsequent evaluation with MRI of the head to rule out posterior circulation CVA 2. Right carotid bifurcation stenosis ? Carotid ultrasound ordered for further evaluation 3. Mild hypercalcemia ? Possibly related to dehydration resolved 4. Dyslipidemia -Patient is on statin therapy, continued at home dose 5. GERD ? On PPI 6. Hypertension - Blood pressure controlled, home medications continued with dose adjustment as needed 7. DVT prophylaxis - On enoxaparin Time spent in the patient's overall evaluation,decision-making process, review of diagnostic data, adjustment of management, discussion with other providers, nursing nursing and ancillary staff involved in patient's care documentation, 38 Minutes Charges/Coding Visit Charges Inpatient E&M: 55433 Subs Hosp L2
[2022-09-20] MEDS: 0.9% Normal Saline 1,000 ML 100 ML IV (10:13)
[2022-09-20] MEDS: Pantoprazole Sodium 20 MG Tablet PO (10:14)
[2022-09-20] MEDS: Enoxaparin 40 MG/0.4 ML Syringe SC (10:14)
[2022-09-20] MEDS: Aspirin 81 MG TAB.CHEW PO (10:14)
[2022-09-20 10:18] VITALS: O2SAT 94
[2022-09-20 11:10] VITALS: BMI 30.9
[2022-09-20 11:50] VITALS: O2SAT 94
[2022-09-20 13:00] VITALS: BP 120/78; PULSE 54; RESP 17; TEMP 36.8; O2SAT 92
--- NOTE | 2022-09-20 14:52 | CASEMGMT ---
Therapy informed SW that patient was unsteady and would benefit from Acute Rehab. SW went to patient's room. Patient's significant other and son were present. SW introduced self and role at [facility] [place]. SW explained therapy's recommendation for Acute Rehab. SW explained Acute Rehab and how it works. SW explained [facility] [place] has an Acute Rehab Unit and there is also one in [place] (which is patient's address). Patient said she has been living with her significant other in [place]. Patient prefers to go home with her significant other. Patient does not want home health. JOSSUE notified RN BECKI. Rhona Neal INSTRUMENT CHECKER AURELIO
--- NOTE | 2022-09-20 15:07 | CASEMGMT ---
RN CM in to discuss needs at discharge. Patient states she has walker at home, RN CM encouraged patient to use walker at discharge. Patient is interested in outpatient therapy. Script receive and provided to patient along with information to [employer]. Patient and family had no further questions or concerns at this time.
--- NOTE | 2022-09-20 15:10 | DS.PCM_ITS ---
Providers Date of Admission: 09/19/22 Date of Discharge: 09/20/22 Primary Care Physician: Sujatha Rees, CHIEF II DISPATCHER-C Reason For Visit: CVA VS COMPLEX MIGRAINE VS BPPV Diagnosis Discharge Diagnosis (1) Dizziness: Status: Acute Code(s): R42 - Dizziness and giddiness Plan Patient is an 82-year-old lady admitted with sudden onset of dizziness which was apparently positional in addition to double vision. Admitted to monitored bed currently undergoing evaluation to rule out posterior circulation CVA. 1. Acute onset of vertigo ? Do suspect BPPV given the persistent nature of symptoms. Admitted to a monitored bed medicated with Valium. Plan is for patient to undergo subsequent evaluation with MRI of the head to rule out posterior circulation CVA ? Patient did complain of diplopia plan is a patient to follow-up with ophthalmology as outpatient. Patient has appointment with ophthalmology Dr. Renteria on 09/21/2022 2. Right carotid bifurcation stenosis ? Carotid ultrasound ordered for further evaluation 3. Mild hypercalcemia ? Possibly related to dehydration resolved 4. Dyslipidemia -Patient is on statin therapy, continued at home dose 5. GERD ? On PPI 6. Hypertension - Blood pressure controlled, home medications continued with dose adjustment as needed 7. DVT prophylaxis - On enoxaparin Time spent in the patient's overall evaluation,decision-making process, review of diagnostic data, adjustment of management, discussion with other providers, nursing nursing and ancillary staff involved in patient's care documentation, 38 Minutes Medications at Discharge Home Medications amlodipine 10 mg tablet 10 mg PO DAILY BLOOD PRESSURE 09/19/22 atorvastatin 10 mg tablet 10 mg PO DAILY CHOLESTEROL 09/19/22 pantoprazole 20 mg tablet,delayed release 20 mg PO DAILY ACID REFLUX 09/19/22 Hospital Course Summary of Care Provided Minutes Spent on Discharge: 38 Physical Exam Narrative GENERAL: cooperative HEENT: Atraumatic; normocephalic EYES; Anicteric, Normal Conjunctiva NECK; supple, normal thyroid, RESPIRATORY: Diminished to auscultation CARDIOVASCULAR: Regular S1 S2, GI: soft, normoactive bowel sounds, : No Renal angle tenderness; EXTREMITIES: No edema, no clubbing, MUSCULOSKELETAL: no muscle wasting NEURO: Awake; no lateralizing signs. SKIN: No Rash PSYCH; Flat affect Weight / BMI Weight Weight: 71.8 kg Body Mass Index (BMI) 30.9 ABG / Lab / Microbiology Data Result Diagrams: 09/20/22 04:43 03/08/23 04:43 Laboratory: Laboratory Results - last 24 hr 09/19/22 18:00: WBC 10.7, RBC 5.29, Hgb 14.1, Hct 45.4, MCV 85.8, MCH 26.7 L, MCHC 31.1 L, RDW Std Deviation 46.0 H, RDW Coeff of Robinson 14.6, Plt Count 279, MPV 11.1, Immature Gran % (Auto) 0.400, Neut % (Auto) 58.2, Lymph % (Auto) 28.7, [place] % (Auto) 9.6, Eos % (Auto) 2.2, Baso % (Auto) 0.9, Absolute Neuts (auto) 6.2, Absolute Lymphs (auto) 3.07, Nucleated RBC % 0 09/19/22 18:00: Sodium 142, Potassium 3.9, Chloride 110 H, Carbon Dioxide 25.0, Anion Gap 7, BUN 14, Creatinine 0.90, Estim Creat Clear Calc 33.42, Est GFR (MDRD) Af Amer 77, Est GFR (MDRD) Non-Af 64, BUN/Creatinine Ratio 15.6, Glucose 101, Calcium 10.9 H, Troponin I High Sens 8 09/19/22 18:00: ESR 18 09/19/22 18:00: Magnesium 2.3, C-React Prot Ext Range < 2.90 09/19/22 18:00: Phosphorus 3.1, Total Creatine Kinase 182 09/19/22 21:15: Procalcitonin < 0.01 09/19/22 21:15: COVID-19 (MARIN) Not Detected 09/20/22 04:43: WBC 8.4, RBC 4.44, Hgb 11.9 L, Hct 38.8, MCV 87.4, MCH 26.8 L, MCHC 30.7 L, RDW Std Deviation 47.3 H, RDW Coeff of Robinson 14.6, Plt Count 216, MPV 10.9, Immature Gran % (Auto) 0.200, Neut % (Auto) 52.0, Lymph % (Auto) 32.9, [place] % (Auto) 10.6 H, Eos % (Auto) 3.2, Baso % (Auto) 1.1 H, Absolute Neuts (auto) 4.4, Absolute Lymphs (auto) 2.76, Nucleated RBC % 0 09/20/22 04:43: Sodium 145, Potassium 3.9, Chloride 114 H, Carbon Dioxide 26.0, Anion Gap 5, BUN 11, Creatinine 0.68, Estim Creat Clear Calc 30.08, Est GFR (MDRD) Af Amer 107, Est GFR (MDRD) Non-Af 88, BUN/Creatinine Ratio 16.3, Glucose 88, Calcium 9.3, Total Bilirubin 1.20 H, AST 21, ALT 16, Alkaline Phosphatase 59, Total Protein 5.9 L, Albumin 2.9 L, Globulin 3.0, Albumin/Globulin Ratio 1.0, Triglycerides 111, Cholesterol 129, LDL Cholesterol 61, VLDL Cholesterol 22, HDL Cholesterol 46, TSH 2.21 09/20/22 04:43: Hemoglobin A1c 5.2 Microbiology: Microbiology 09/19/22 23:25 Mucosa - Nasopharyngeal Respiratory Panel (PCR) - Final Radiography Diagnostic Testing: Radiology Impression Head/Neck CTA 09/19/22 18:12 IMPRESSION: 1. Atherosclerotic changes at the right carotid bifurcation with approximate 60% stenosis. 2. Hemodynamically insignificant left carotid calcification. 3. Mild atherosclerotic changes of the carotid siphons without significant stenosis. 4. Atretic P1 segments of the bilateral posterior cerebral arteries. The distal arteries are supplied via the patent bilateral posterior communicating arteries. Otherwise normal intracranial vasculature. Electronically Signed: Ariel Chambers DO at 19:57 EST Reading Location ID and State: [address] [place] [address] Tel [phone], Service support , Carotid Duplex 09/19/22 21:47 Interpretation Summary Irregular calcific plaque at the proximal right internal carotid artery with less than 50% stenosis Less than 50% stenosis right external carotid artery Mild irregular plaque at the proximal left internal carotid artery with less than 50% stenosis Less than 50% stenosis left external carotid artery Patent and antegrade vertebral arteries bilaterally Ordering Physician: Hollie Horan Referring Physician: Sujatha Rees Performed By: Lian Han T Brain MRI 09/20/22 10:00 IMPRESSION: 1. No MRI evidence of acute or subacute ischemic infarct or acute intracranial abnormality. 2. Chronic white matter ischemic changes in both cerebral hemispheres. Electronically Signed: Santos Castañeda MD at 12:31 EST , D/C Instructions Discharge Diet: No restrictions Discharge Activity: Return to Normal Activity Call your doctor if you observe: Fever of 101 or Higher, Shortness of breath, Fainting spells and Chest pain Meaningful Use Info Meaningful Use Diagnoses (Choose all that apply): None applicable Discharge Plan Admission Admit Date/Time: 09/19/22 21:00 Attending Provider: Mathew Romeo Primary Care Provider: Sujatha Rees CHIEF II DISPATCHER Consulting Providers: Hollie Horan Discharge Orders/Prescriptions Prescriptions: Continued amlodipine 10 mg tablet 10 mg PO DAILY atorvastatin 10 mg tablet 10 mg PO DAILY pantoprazole 20 mg tablet,delayed release (DR/EC) 20 mg PO DAILY Referrals / Follow Up: Itzel Renteria MD [Med Staff - Active Staff] - In 1 Day Care Physician,No Primary [Non-Staff] - Sujatha Rees CHIEF II DISPATCHER, CHIEF II DISPATCHER-C [Primary Care Provider] - Within 1 Week Disposition Disposition (needs filled in before D/C Order can be placed): Home, Self Care Charges/Coding Visit Charges Inpatient E&M: 64390 Disch Hosp >30min
--- NOTE | 2022-09-20 15:21 | CASEMGMT ---
SW did not complete a PHQ 9 with patient as she did not have a Stroke or TIA. Rhona Neal ACCOUNT REPRESENTATIVE AURELIO
[2022-09-20 15:49] VITALS: BMI 30.9
== END 2022-09-20 15:08 | disposition home or self-care (01) ==
LOC: ED 20:21 → PCU 21:13
PROVIDERS: Admitting Provider Family Medicine; Emergency Provider Emergency Medicine; PCP Nurse Practitioner Family; Visit Provider Internal Medicine
DX: R42 Dizziness and giddiness (principal); R26.2 Difficulty in walking, not elsewhere classified; I65.21 Occlusion and stenosis of right carotid artery; Z87.891 Personal history of nicotine dependence; I10 Essential (primary) hypertension; E78.5 Hyperlipidemia, unspecified; Z79.899 Other long term (current) drug therapy; E83.52 Hypercalcemia
CPT/HCPCS: 36415; 70496; 70498; 70551; 80048; 80053; 80061; 82330; 82550; 83036; 83735; 84100; 84145; 84443; 84484; 85025; 85652; 86140; 87633; 87635; 93005; 93306; 93880; 94668; 94762; 96361; 96372; 96374; 97162; 97166; 97802; 99221; 99285; J7030; Q9967; A4216; G0378; J2405; U0003; U0005

== ENCOUNTER 2023-01-19 05:46 | Emergency (ER) | payer MEDICARE, OTHER, SELFPAY ==
[2023-01-19 05:47] VITALS: BP 135/72; PULSE 61; RESP 16; TEMP 36.3; O2SAT 95; BMI 30.1
--- NOTE | 2023-01-19 05:50 | RAD_ITS ---
EXAM: XR CHEST, 1 VIEW CLINICAL INDICATION: chest pain TECHNIQUE: Frontal view of the chest. COMPARISON: Previous chest radiograph of 07/05/2016 FINDINGS: LUNGS AND PLEURAL SPACES: Chronic mild eventration of the right hemidiaphragm. Right basilar atelectasis. No pneumonia or pleural effusion. No pneumothorax. HEART: Heart size is mildly enlarged with normal pulmonary vasculature. MEDIASTINUM: Large hiatal hernia again noted, mostly filled with gas rather than fluid. BONES/JOINTS: Stable S-shaped thoracolumbar scoliosis. Degenerative narrowing of the right glenohumeral joint with superior subluxation of the right humeral head and narrowing of the subacromial distance, suggesting right rotator cuff atrophy and/or tear. SOFT TISSUES: Unremarkable. VASCULATURE: Stable moderate elongation and calcification of the thoracic aorta. RAD/Chest 1 View (Portable) IMPRESSION: 1. Large hiatal hernia. 2. Right basilar atelectasis. 3. No pneumonia or pulmonary edema. Electronically Signed: Alejandro Sebastian MD at 6:46 EDT ,
--- NOTE | 2023-01-19 05:50 | EKG12_ITS ---
Test Reason : CP Blood Pressure : / mmHG Vent. Rate : 063 BPM Atrial Rate : 063 BPM P-R Int : 188 ms QRS Dur : 090 ms QT Int : 430 ms P-R-T Axes : 021 -06 008 degrees QTc Int : 440 ms Normal sinus rhythm Septal infarct , age undetermined Abnormal ECG Confirmed by DAMIAN BAEZA, OSVALDO ([id number]), commissioning editor MEGAN PHILLIPS ([id number]) on 01/22/2023 1:11:20 PM Referred By: AR Confirmed By:GREGORIA SALGADO MD
[2023-01-19 06:01] LABS: Absolute Lymphocyte Count 3.09 X10^3/uL (0.83-4.51); Absolute Neutrophil Count 4.4 X10^3/uL (2.0-7.7); Basophil# 0.09 X10^3/uL; Eosinophil# 0.36 X10^3/uL; Hematocrit 41.6 % (37-47); Hemoglobin 13.1 g/dL (12.0-15.0); Lymphocyte # 3.09 X10^3/ul (0.83-4.51); Lymphocyte % 34.3 % (19-41); Mean Corp Hgb Conc 31.5 g/dL (32-36); Mean Corpuscular Hgb 27.4 pg (27.0-32.0); Mean Platelet Vol. 10.2 fl (6.2-12.0); Monocyte# 1.03 X10^3/uL; Monocyte% 11.4 % (0-10); NRBC Flagged by Analyzer 0 % (0-5); Neutrophil # 4.41 X10^3/uL (2.7-7.7); Platelet Count 258 K/mm3 (150-450); RBC Distribution Width CV 15.2 % (11.6-14.6); RBC Distribution Width SD 48.2 fl (35.1-43.9); Red Blood Count 4.78 M/mm3 (4.2-5.4)
[2023-01-19] MEDS: Aspirin 81 MG TAB.CHEW 324 MG PO (06:02)
--- NOTE | 2023-01-19 06:08 | EDS_ITS ---
HPI History of Present Illness Chief Complaint: Chest Pain Narrative Narrative: 82-year-old female presenting with chest pain. She states this started happening about 2 weeks ago. It happens in the morning and it wakes her up from sleep. She describes the pain is radiating across her low upper abdomen and lower chest. She states that it does radiate up into her neck. Patient denies any known cardiac disease but states she has history of TIAs. She has hypertension, hyperlipidemia, GERD. Previously has had hiatal hernia repair in May 2020. She has not had the symptoms until recently. She was told that her stomach would eventually get better but she does not eat well because of the problem. No fevers or chills. No cough or shortness of breath. No diarrhea. Patient states today her pain lasted about an hour across the area of chest that she is describing and radiate up into the neck and resolved on its own. She currently has no pain. [facility] Medical History BPPV (benign paroxysmal positional vertigo) Former tobacco use Hiatal hernia HLD (hyperlipidemia) HTN (hypertension) Migraine Home Medications amlodipine 10 mg tablet 10 mg PO DAILY BLOOD PRESSURE 09/19/22 [History Last Taken 09/19/22] atorvastatin 10 mg tablet 10 mg PO DAILY CHOLESTEROL 09/19/22 [History Last Ta panda 09/19/22] pantoprazole 20 mg tablet,delayed release 20 mg PO DAILY ACID REFLUX 09/19/22 [History Last Taken Unknown] losartan 25 mg tablet 25 mg PO DAILY 01/19/23 [History Last Taken 01/18/23] meclizine 25 mg tablet 25 mg PO PRN PRN DIZZINESS 01/19/23 [History Last Taken 01/18/23] Allergy/AdvReac Type Severity Reaction Status Date / Time Penicillins [PCN] Allergy Rash Verified 01/19/23 05:52 pain meds Allergy Rash Uncoded 09/19/22 17:55 Family History Mother CAD (coronary artery disease) Heart disease Hypertension Surgical History History of eye surgery History of repair of hiatal hernia S/P bilateral hip replacements Social History household members: significant other Smoking Status: Former smoker how long ago did patient quit smoking: Quit 1960s, started in her 20s, ~ 1/2 ppd until quit. alcohol intake: never substance use type: does not use EXAM Physical Exam Const Vital Signs: 01/19/23 05:47 Temperature 97.3 F L Temperature Source Temporal Pulse Rate 61 Respiratory Rate 16 Blood Pressure 135/72 H Blood Pressure Mean 93 Pulse Ox 95 Oxygen Delivery Method Room Air Positive well nourished General Appearance ED: NAD; Negative for pallor HEENT Reports moist mucous membranes normocephalic and atraumatic Eyes PERRL and EOMs intact bilaterally Chest Wall inspection of chest normal and palpation of chest normal Resp normal respiratory effort and clear to auscultation bilaterally Auscultation: Negative for rales, rhonchi or wheezes Cardio Negative for regular rate or regular rhythm GI normal to inspection, nondistended, normoactive bowel sounds Extremity normal to inspection Neuro oriented x3 and CN's II-XII intact bilaterally Sensorium / Orientation: awake and alert Motor Exam: strength 5/5 throughout Psych mental status grossly normal Skin General Skin Exam: Negative for jaundice or pallor Heart Score History: Slightly/Non-Suspicious ECG: Normal Age: >/= 65 years Score: 2 MDM MDM MDM Narrative Medical decision making narrative: Patient presenting with chest pain which is across her lower chest. She cannot describe it in pain except for to call a kaleb-like. She points to the center of her chest and then moves her hands to both sides. She states today's pain lasted an hour but she had episodes of this most mornings for the last 2 weeks. Has a history of hiatal hernia repair in May. This was performed by Dr. Gogo Babin. Patient does have hypertension, hyperlipidemia, history of tobacco use. She is never been diagnosed with any cardiac disease. Di fferential includes but is not limited to ACS, PE, pneumonia, pneumothorax, muscle strain, costochondritis, gastritis, hiatal hernia pain, anemia, upper GI bleed, electrode abnormalities. CBC to assess white blood cell count, hemoglobin, platelets, differential. BMP to assess renal function, electrolytes, glucose, anion gap. We will obtain a liver function panel to assess the liver enzymes. Lipase to assess for pancreatitis. High-sensitivity troponin and EKG to rule out ischemic causes. Chest x-ray to rule out pneumonia or other acute abnormalities. Patient currently pain-free and she was given 324 mg of baby aspirin to chew. CBC shows no leukocytosis. Hemoglobin normal at 13.1. Platelets 258. Renal function and electrolytes within normal limits. High-sensitivity troponin initially 10. EKG on my interpretation shows a normal sinus rhythm with a ventricular rate of 63 bpm without sign of ischemic change or ectopy. Chest x-ray on my interpretation shows nothing acute however there is a hiatal hernia. The radiologist interprets this and agrees. Patient's bilirubin was a little bit elevated at 2.2. This was previously elevated on her last stay at 1.20. Review of her blood work most recently on 12/04/2022 shows she had a bilirubin of 1.8. Lipase is normal. Patient does not have any abdominal discomfort on exam and she does not have a Kline sign. I do not believe she needs an ultrasound. I believe most of her pain is likely due to a hiatal hernia which was seen on the chest x-ray. I will obtain a delta troponin. She will be signed out to incoming ED physician for monitoring until second troponin returns. I feel she likely be discharged home. Impression: 1. Chest pain 2. Elevated bilirubin 3. Hiatal hernia Lab Data Attestation: I reviewed the patient's lab results. Labs: Laboratory Results - last 24 hr 01/19/23 05:43 WBC 9.0 RBC 4.78 Hgb 13.1 Hct 41.6 MCV 87.0 MCH 27.4 MCHC 31.5 L RDW Std Deviation 48.2 H RDW Coeff of Robinson 15.2 H Plt Count 258 MPV 10.2 Immature Gran % (Auto) 0.300 Neut % (Auto) 49.0 Lymph % (Auto) 34.3 [place] % (Auto) 11.4 H Eos % (Auto) 4.0 Baso % (Auto) 1.0 Absolute Neuts (auto) 4.4 Absolute Lymphs (auto) 3.09 Nucleated RBC % 0 Sodium 144 Potassium 3.7 Chloride 111 H Carbon Dioxide 27.0 Anion Gap 6 BUN 20 H Creatinine 0.81 Estim Creat Clear Calc 37.14 Est GFR (MDRD) Af Amer 87 Est GFR (MDRD) Non-Af 72 BUN/Creatinine Ratio 24.8 H Glucose 87 Calcium 10.1 Total Bilirubin 2.20 H Direct Bilirubin 0.39 H AST 25 ALT 19 Alkaline Phosphatase 85 Troponin I High Sens 10 Total Protein 7.1 Albumin 3.5 Globulin 3.6 Lipase 40 Radiography Diagnostic Testing: Clinical Impression(s) from Imaging Studies Chest X-Ray 01/19/23 05:50 IMPRESSION: 1. Large hiatal hernia. 2. Right basilar atelectasis. 3. No pneumonia or pulmonary edema. Electronically Signed: Alejandro Sebastian MD at 6:46 EDT , Discharge Plan Triage Chief Complaint: Chest Pain ED Provider: Scot Conley Dx/Rx/DC Orders Prescriptions: No Action amlodipine 10 mg tablet 10 mg PO DAILY atorvastatin 10 mg tablet 10 mg PO DAILY pantoprazole 20 mg tablet,delayed release (DR/EC) 20 mg PO DAILY losartan 25 mg tablet 25 mg PO DAILY Patient Comments: TAKE 1 TABLET BY MOUTH EVERY DAY meclizine 25 mg tablet 25 mg PO PRN PRN (Reason: DIZZINESS) Patient Comments: TAKE 1 TABLET BY MOUTH THREE TIMES A DAY NEEDED Primary Care Provider: Sujatha Rees NP Referrals: Sujatha Rees [employer]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
[2023-01-19 06:25] LABS: Anion Gap 6 (5-15); BUN 20 mg/dL (7-18); BUN/Creat Ratio 24.8 RATIO (10-20); Calcium,Total 10.1 mg/dL (8.5-10.1); Chloride 111 mmol/L (98-107); Creatinine, Serum 0.81 mg/dL (0.55-1.02); EST Glomerular Filtration Rate 72 mL/min (>60); Est Glom Filt Rate - Afr Amer 87 mL/min (>60); Estimated Creatinine Clearance 37.14 ml/min; Glucose 87 mg/dL (74-106); Potassium 3.7 mmol/L (3.5-5.1); Sodium Level 144 mmol/L (136-145); Troponin-I HS (w/2H Reflex) 10 pg/mL (3.0-54.0)
[2023-01-19 06:56] LABS: AST(SGOT) 25 U/L (15-37); Alanine Aminotransfer ALT/SGPT 19 U/L (13-56); Albumin, Serum 3.5 g/dL (3.2-5.0); Alkaline Phosphatase 85 U/L (45-117); Bilirubin, Direct 0.39 mg/dL (0.00-0.30); Globulin 3.6 g/dL (2.2-4.2); Lipase 40 U/L (13-75); Protein, Total 7.1 g/dL (6.4-8.2)
[2023-01-19 07:58] LABS: Reflex Troponin-HS? (from REC) Y
[2023-01-19 08:26] LABS: Troponin-I HS 10 pg/mL (3.0-54.0)
[2023-01-19 09:35] VITALS: BP 119/70; PULSE 64; RESP 18; O2SAT 98
== END 2023-01-19 09:36 | disposition home or self-care (01) ==
PROVIDERS: Emergency Provider Student in an Organized Health Care Education/Training Program; PCP Nurse Practitioner Family; Visit Provider Student in an Organized Health Care Education/Training Program
DX: R07.9 Chest pain, unspecified (principal); E78.5 Hyperlipidemia, unspecified; K44.9 Diaphragmatic hernia without obstruction or gangrene; I10 Essential (primary) hypertension; Z79.899 Other long term (current) drug therapy; Z86.73 Personal history of transient ischemic attack (TIA), and cerebral infarction without residual deficits; Z87.891 Personal history of nicotine dependence
CPT/HCPCS: 71045; 80048; 80076; 83690; 84484; 85025; 93005; 99285; A4216

== ENCOUNTER 2024-06-12 23:15 | Emergency (ER) | payer MEDICARE, OTHER, SELFPAY ==
[2024-06-12 23:15] VITALS: BP 139/82; PULSE 98; RESP 17; TEMP 37.8; O2SAT 93; BMI 29.9
[2024-06-12 23:19] VITALS: BP 139/82; PULSE 98; RESP 16; TEMP 37.8; O2SAT 93
--- NOTE | 2024-06-12 23:53 | CT_ITS ---
INDICATION: nausea and vomiting EXAMINATION: CT Abdomen And Pelvis W/ Contrast Injection TECHNIQUE: Helically acquired images were obtained of the abdomen and pelvis with sagittal and coronal reconstructed images. Individualized dose optimization techniques were used for this CT. IV contrast dosage and agent: 100 mL of Isovue-370. Oral contrast: None. COMPARISON: None. FINDINGS: VESSELS: No abdominal aortic aneurysm or dissection. 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 LIVER: Hepatic cyst. Hepatomegaly. No intrahepatic or extrahepatic biliary duct dilation. GALLBLADDER: No calcified stones. No evidence of cholecystitis. PANCREAS: No focal solid or cystic mass. No evidence of pancreatitis. SPLEEN: Normal. ADRENAL GLANDS: 1.6 indeterminate left adrenal gland nodule and 1.5 cm indeterminate right adrenal gland nodule. KIDNEYS AND URETERS: Left renal stone. No hydronephrosis or hydroureter. No significant asymmetric perinephric stranding. URINARY BLADDER: Unremarkable. BOWEL: Diverticulosis with no evidence of diverticulitis. Appendix appears normal. No evidence of bowel obstruction. REPRODUCTIVE ORGANS: No evidence of a pelvic mass. PERITONEUM: No intraabdominal free fluid or free air. LYMPH NODES: No pathologically enlarged mesenteric or retroperitoneal lymph nodes. ABDOMINAL WALL: No abdominal or pelvic wall hernia. BONES: No acute abnormality. LOWER CHEST: Small hiatal hernia. Bilateral Bochdalek hernias. CT/Abdomen/Pelvis W IV Cont ONLY IMPRESSION: 1. No acute abnormality. 2. 2.5 cm ectasia of the infrarenal abdominal aorta. 3. Hepatomegaly. 4. Indeterminate bilateral adrenal gland nodules. Recommend follow-up CT with dedicated adrenal protocol in one year. Electronically Signed: Ambrocio Miller DO at 1:11 EST ,
[2024-06-12 23:54] VITALS: TEMP 37.5
--- NOTE | 2024-06-12 23:55 | EX.ED.DYSGE1 ---
HPI History of Present Illness Chief Complaint: General Illness Narrative Narrative: 83-year-old female past medical history of hiatal hernia surgery last year at [facility] by Dr. Sandoval presents with nausea and vomiting. She states she has had intermittent vomiting for the last week. She has very dry mouth. She states there are times where she will get a flow of saliva and be very nauseated. She called squad today because she vomited once but was having the saliva come up again. Currently she feels improved. She feels dehydrated. She is not having diarrhea or abdominal pain. No chest pain or shortness of breath, no cough. [facility] Medical History Hiatal hernia Former tobacco use HLD (hyperlipidemia) HTN (hypertension) BPPV (benign paroxysmal positional vertigo) Migraine Home Medications ?Medication ?Instructions ?Recorded ?Last Taken ?Type amlodipine 10 mg tablet 10 mg PO DAILY BLOOD PRESSURE 09/19/22 09/19/22 History atorvastatin 10 mg tablet 10 mg PO DAILY CHOLESTEROL 09/19/22 09/19/22 History pantoprazole 20 mg tablet,delayed 40 mg PO DAILY ACID REFLUX 09/19/22 Unknown History release losartan 25 mg tablet 25 mg PO DAILY 01/19/23 01/18/23 History meclizine 25 mg tablet 25 mg PO PRN PRN DIZZINESS 01/19/23 01/18/23 History aspirin 81 mg chewable tablet 1 tab PO DAILY 06/12/24 Unknown History (Aspirin Childrens) biotin .ROUTE 06/12/24 Unknown History mirabegron 25 mg tablet,extended 25 mg PO DAILY 06/12/24 Unknown History release 24 hr nitroglycerin 0.4 mg sublingual 0.4 mg sublingual PRN PRN angina 06/12/24 Unknown History tablet sennosides 8.6 mg-docusate sodium 1 tab-cap PO BID 06/12/24 Unknown History 50 mg tablet (2-in-1 Laxative) ondansetron 4 mg disintegrating 4 mg PO Q8H PRN PRN Nausea #10 tabs 06/13/24 Unknown Rx tablet sulfamethoxazole 800 1 tab PO BID 7 days #14 tabs 06/13/24 Unknown Rx mg-trimethoprim 160 mg tablet (Bactrim DS) Allergy/AdvReac Type Severity Reaction Status Date / Time Penicillins (PCN) Allergy Rash Verified 06/12/24 23:16 pain meds Allergy Rash Uncoded 09/19/22 17:55 Family History Mother CAD (coronary artery disease) Heart disease Hypertension Surgical History History of eye surgery History of repair of hiatal hernia S/P bilateral hip replacements Social History household members: significant other Smoking Status: Former smoker how long ago did patient quit smoking: Quit 1960s, started in her 20s, ~ 1/2 ppd until quit. alcohol intake: never substance use type: does not use ROS ROS ED ROS Narrative Constitutional: No fever, no chills. HEENT: No sore throat. No neck pain. No loss of vision. No rhinorrhea. Cardiovascular: No chest pain. No palpitations. No pedal edema. Respiratory: No cough, no shortness of breath. Abdominal: No abdominal pain. Positive nausea and vomiting x 1 week. Episodes of increased saliva. Genitourinary: No dysuria. No hematuria. Musculoskeletal: No myalgias. No arthralgias. Neurologic: No headaches. No dizziness. No lightheadedness. Skin: No rash. No change in color. Psychiatric: No depression. No anxiety. EXAM Physical Exam Narrative Exam Narrative: Afebrile, but elevated temperature of 100.1 ?F. Vital signs noted. Nontoxic-appearing. HEENT examination does show dry mucous membranes. Cardiovascular examination regular rate and rhythm. Lungs are clear to auscultation bilaterally. Abdomen soft and nontender with positive bowel sounds. No guarding or rebound. Neurological examination nonfocal and nonlateralizing. Const Vital Signs: 06/12/24 23:15 06/12/24 23:15 06/12/24 23:19 Temperature 100.1 F H 100.1 F H Temperature Source Oral Oral Pulse Rate 98 98 Respiratory Rate 17 16 Respiratory Effort Normal Non-Labored Respiratory Pattern Normal Blood Pressure 139/82 H 139/82 H Blood Pressure Mean 101 101 Pulse Ox 93 93 Oxygen Delivery Method Room Air Room Air 06/12/24 23:54 06/13/24 00:19 06/13/24 01:00 Temperature 99.5 F H 99.5 F H 99.5 F H Temperature Source Oral Oral Oral Pulse Rate 78 88 Respiratory Rate 16 16 Respiratory Effort Respiratory Pattern Blood Pressure 112/75 132/76 H Blood Pressure Mean 87 94 Pulse Ox 95 93 Oxygen Delivery Method Room Air Room Air 06/13/24 01:00 Temperature 99.5 F H Temperature Source Pulse Rate 88 Respiratory Rate 16 Respiratory Effort Respiratory Pattern Blood Pressure 132/76 H Blood Pressure Mean 94 Pulse Ox 98 Oxygen Delivery Method MDM MDM MDM Narrative Medical decision making narrative: Differential diagnosis includes but not limited to partial small bowel obstruction versus bowel obstruction versus pancreatitis versus cholecystitis. Patient administered ondansetron for nausea. Repeat temperature performed. She has a temperature of 99. 5 ?F. I reviewed her laboratory work, she has elevated white count of 13.6, hemoglobin 14.0 with hematocrit 41.5, platelet count normal at 201. Electrolyte panel shows potassium low at 2.8. This was replaced orally with 60 mill equivalents. Glucose elevated at 117 but normal anion gap of 8. While total bili is elevated at 3.6, this is chronically elevated. BUN of 21 with normal creatinine of 0.72. Chloride elevated at 109 which I think is nonspecific. Lipase normal at 20 so I doubt pancreatitis. Her urinalysis did show WBCs 10-25 with 2+ bacteria and positive nitrites. This was sent for culture. As she has an allergy to penicillin, she was started on Bactrim. At this point in time, as I reviewed her CT of the abdomen pelvis which shows no evidence of an acute process, no bowel obstruction, I feel she can be discharged to follow-up with her primary care provider. Additionally chest x-ray in 1 view obtained and interpreted by myself shows no acute process, no pneumonia or pneumothorax. I reviewed the radiology report which confirms my independent interpretation. She was written a prescription for Zofran and for Bactrim as I feel this may be the source of her slightly elevated temperature. Return instructions were reviewed. Disposition is discharged home in stable condition. History & Record Review Discussion w/independent historian: Patient Lab Data Attestation: I reviewed the patient's lab results. Labs: Laboratory Results - last 24 hr 06/13/24 06/13/24 00:05 00:35 WBC 13.6 H RBC 4.72 Hgb 14.0 Hct 41.5 MCV 87.9 MCH 29.7 MCHC 33.7 RDW Std Deviation 42.8 RDW Coeff of Robinson 13.3 Plt Count 201 MPV 10.8 Immature Gran % (Auto) 0.400 Neut % (Auto) 82.4 H Lymph % (Auto) 6.2 L [place] % (Auto) 10.2 H Eos % (Auto) 0.4 Baso % (Auto) 0.4 Absolute Neuts (auto) 11.2 H Absolute Lymphs (auto) 0.84 Nucleated RBC % 0 Sodium 142 Potassium 2.8 L Chloride 109 H Carbon Dioxide 25.0 Anion Gap 8 BUN 21 H Creatinine 0.72 Estim Creat Clear Calc 44.69 Est GFR (MDRD) Af Amer 100 Est GFR (MDRD) Non-Af 82 BUN/Creatinine Ratio 29.4 H Glucose 117 H Calcium 9.7 Total Bilirubin 3.60 H AST 17 ALT 15 Alkaline Phosphatase 67 Total Protein 6.9 Albumin 3.5 Globulin 3.4 Albumin/Globulin Ratio 1.0 Lipase 20 Urine Color Yellow Urine Clarity Clear Urine pH 6.0 Ur Specific [place] 1.020 Urine Protein 30 H Urine Glucose (UA) Normal Urine Ketones 5 H Urine Occult Blood 10 H Urine Nitrite Positive H Urine Bilirubin Negative Urine Urobilinogen Normal Ur Leukocyte Esterase 500 H Urine RBC 0 SEEN Urine WBC 10-25 SEEN Ur Squamous Epith Cells 0 SEEN Urine Bacteria 2+ Urine Mucus 0 SEEN Radiography Diagnostic Testing: Clinical Impression(s) from Imaging Studies Abdomen/Pelvis CT 06/12/24 23:53 IMPRESSION: 1. No acute abnormality. 2. 2.5 cm ectasia of the infrarenal abdominal aorta. 3. Hepatomegaly. 4. Indeterminate bilateral adrenal gland nodules. Recommend follow-up CT with dedicated adrenal protocol in one year. Electronically Signed: Ambrocio Miller DO at 1:11 EST , Chest X-Ray 06/13/24 00:00 IMPRESSION: No evidence of acute cardiopulmonary disease. Electronically Signed: Ambrocio Miller DO at 1:12 EST , Discharge Plan Triage Chief Complaint: General Illness ED Provider: Santos Byrne Dx/Rx/DC Orders Clinical Impression: Nausea and vomiting, UTI (urinary tract infection), Hypokalemia Instructions: ED Hypokalemia, ED Cystitis Female Adult, ED Vomiting (Adult) Prescriptions: New sulfamethoxazole-trimethoprim [Bactrim DS] 800-160 mg tablet 1 tab PO BID 7 Days Qty: 14 0RF ondansetron 4 mg tablet,disintegrating 4 mg PO Q8H PRN PRN (Reason: Nausea) Qty: 10 0RF No Action amlodipine 10 mg tablet 10 mg PO DAILY atorvastatin 10 mg tablet 10 mg PO DAILY pantoprazole 20 mg tablet,delayed release (DR/EC) 40 mg PO DAILY losartan 25 mg tablet 25 mg PO DAILY Patient Comments: TAKE 1 TABLET BY MOUTH EVERY DAY meclizine 25 mg tablet 25 mg PO PRN PRN (Reason: DIZZINESS) Patient Comments: TAKE 1 TABLET BY MOUTH THREE TIMES A DAY NEEDED aspirin [Aspirin Childrens] 81 mg tablet,chewable 1 tab PO DAILY biotin .ROUTE nitroglycerin 0.4 mg tablet, sublingual 0.4 mg sublingual PRN PRN (Reason: angina) mirabegron 25 mg tablet extended release 24 hr 25 mg PO DAILY sennosides-docusate sodium [2-in-1 Laxative] 8.6-50 mg tablet 1 tab-cap PO BID Primary Care Provider: Sujatha Rees NP Referrals: Sujatha Rees NP, [facility] [Primary Care Provider] - 3-5 Days if not improving Activity Restrictions/Additional Instructions: Return with increased nausea and vomiting, abdominal pain, new or worsening symptoms. Have your potassium rechecked by your primary care provider within the next week. Print Language: Wolof Disposition Disposition: Home, Self Care
--- NOTE | 2024-06-13 | RAD_ITS ---
INDICATION: fever EXAMINATION/TECHNIQUE: X-RAY - XR Chest 1 View COMPARISON: 01/19/2023. FINDINGS: LINES/DEVICES: None. LUNGS: No consolidation or evidence of an effusion. No evidence of edema or a pneumothorax. MEDIASTINUM AND CARDIOVASCULAR STRUCTURES: Cardiac silhouette is normal in size and contour. Mediastinum is unremarkable. BONES AND SOFT TISSUES: No acute abnormality. RAD/Chest 1 View (Portable) IMPRESSION: No evidence of acute cardiopulmonary disease. Electronically Signed: Ambrocio Miller DO at 1:12 EST ,
[2024-06-13] MEDS: Ondansetron 4 MG/2 ML Vial IV (00:09)
[2024-06-13 00:17] LABS: Absolute Lymphocyte Count 0.84 X10^3/uL (0.83-4.51); Absolute Neutrophil Count 11.2 X10^3/uL (2.0-7.7); Basophil# 0.06 X10^3/uL; Basophil% 0.4 % (0-1); Eosinophil# 0.05 X10^3/uL; Eosinophils% 0.4 % (0-5); Hematocrit 41.5 % (37-47); Lymphocyte # 0.84 X10^3/ul (0.83-4.51); Lymphocyte % 6.2 % (19-41); Mean Corp Hgb Conc 33.7 g/dL (32-36); Mean Corpuscular Hgb 29.7 pg (27.0-32.0); Mean Corpuscular Volume 87.9 fL (81-99); Mean Platelet Vol. 10.8 fl (6.2-12.0); Monocyte# 1.38 X10^3/uL; Monocyte% 10.2 % (0-10); NRBC Flagged by Analyzer 0 % (0-5); Neutrophil # 11.19 X10^3/uL (2.7-7.7); Neutrophil % 82.4 % (47-70); Platelet Count 201 K/mm3 (150-450); RBC Distribution Width CV 13.3 % (11.6-14.6); RBC Distribution Width SD 42.8 fl (35.1-43.9); Red Blood Count 4.72 M/mm3 (4.2-5.4); White Blood Count 13.6 K/mm3 (4.4-11.0)
[2024-06-13 00:19] VITALS: BP 112/75; PULSE 78; RESP 16; TEMP 37.5; O2SAT 95
[2024-06-13 00:30] LABS: AST(SGOT) 17 U/L (15-37); Alanine Aminotransfer ALT/SGPT 15 U/L (13-56); Albumin, Serum 3.5 g/dL (3.2-5.0); Alkaline Phosphatase 67 U/L (45-117); Anion Gap 8 (5-15); BUN 21 mg/dL (7-18); BUN/Creat Ratio 29.4 RATIO (10-20); Calcium,Total 9.7 mg/dL (8.5-10.1); Chloride 109 mmol/L (98-107); Creatinine, Serum 0.72 mg/dL (0.55-1.02); EST Glomerular Filtration Rate 82 mL/min (>60); Est Glom Filt Rate - Afr Amer 100 mL/min (>60); Estimated Creatinine Clearance 44.69 ml/min; Globulin 3.4 g/dL (2.2-4.2); Glucose 117 mg/dL (74-106); Lipase 20 U/L (13-75); Potassium 2.8 mmol/L (3.5-5.1); Protein, Total 6.9 g/dL (6.4-8.2); Sodium Level 142 mmol/L (136-145)
[2024-06-13 00:38] LABS: Mucous, Urine 0 SEEN /hpf (<or=2+); Red Blood Cells-Urine 0 SEEN /hpf (0-5); Squamous Epithelial Cells - UA 0 SEEN /hpf (5-10)
[2024-06-13 00:40] LABS: Color, Urine Yellow (Yellow); Glucose, Dipstick Normal (Normal); Ketone-Dipstick 5 mg/dl (Negative); Leukocyte Esterase-Dipstick 500 /ul (Negative); Nitrite-Dipstick Positive (Negative); Occult Blood-Urine 10 /ul (Negative); Protein-Dipstick 30 mg/dl (Negative); Urine Bilirubin Dipstick Negative (Negative); Urine Clarity Clear (Clear); Urine Urobilinogen Normal (Normal)
[2024-06-13 00:51] LABS: Bacteria 2+ /hpf (None Seen); White Blood Cells 10-25 SEEN /hpf (0-5)
[2024-06-13 01:00] VITALS: BP 132/76; PULSE 88; RESP 16; TEMP 37.5; O2SAT 93; O2SAT 98
[2024-06-13] MEDS: Potassium Chloride Oral Tablet 20 MEQ 60 MEQ PO (01:29)
[2024-06-13] MEDS: Smz/Tmp Ds Tablet 1 TABLET PO (01:29)
--- NOTE | 2024-06-15 11:51 | ED.RN ---
Dr Cole changing RX for pt. Pt didn't have Sulfa listed as an allergy and Bactrim was ordered for pt. Daughter called and asked for a different medication.
== END 2024-06-13 01:38 | disposition home or self-care (01) ==
PROVIDERS: Emergency Provider Emergency Medicine; PCP Nurse Practitioner Family; Visit Provider Emergency Medicine
DX: N39.0 Urinary tract infection, site not specified (principal); R11.2 Nausea with vomiting, unspecified; E87.6 Hypokalemia; I10 Essential (primary) hypertension; E78.5 Hyperlipidemia, unspecified; H81.10 Benign paroxysmal vertigo, unspecified ear; Z88.0 Allergy status to penicillin; Z79.82 Long term (current) use of aspirin; Z79.899 Other long term (current) drug therapy; Z96.643 Presence of artificial hip joint, bilateral; Z87.891 Personal history of nicotine dependence
CPT/HCPCS: 71045; 74177; 80053; 81001; 83690; 85025; 87077; 87086; 87088; 87186; 96374; 99284; Q9967; A4216; J2405